=== PATIENT | male | born 1965 | race Two or more races ===

== ENCOUNTER → 2024-09-28 | Outpatient (CLI) | payer MEDICAID, SELFPAY ==
--- NOTE | 2024-09-28 12:45 | XR_ITS ---
Examination: PA lateral chest 2 views TECHNIQUE: Upright PA lateral chest 2 views Exam date and time: September 28, 2024 at 1256 hours INDICATIONS: Coughing beginning 15 days ago FINDINGS: Very upper Mild pneumonia at the medial segment right lower lobe Left lung clear IMPRESSION: Mild pneumonia anteromedial segment right lower lobe
== END | disposition home or self-care (01) ==
PROVIDERS: PCP Nurse Practitioner; Referring Provider Nurse Practitioner; Visit Provider Nurse Practitioner
DX: J18.9 Pneumonia, unspecified organism (principal)
CPT/HCPCS: 71046